=== PATIENT | female | born 1940 | race Caucasian/White ===

== ENCOUNTER 2016-06-29 13:19 | Outpatient (CLI) | payer OTHER ==
--- NOTE | 2016-06-29 14:32 | DIAGNOSTIC IMAGING REPORT ---
PROCEDURE: CT ABDOMEN/PELVIS W/O CONTRAST INDICATION: ABD PAIN X1 WEEK TECHNIQUE: Noncontrast axial images were obtained of the entire abdomen and pelvis with sagittal and coronal reformations. COMPARISON: CT abdomen/pelvis 01/15/2011. FINDINGS: ABDOMEN: Lung base are clear. Heart size is normal. Cholecystectomy. Liver, pancreas, spleen and adrenal glands are normal. Small right renal cyst. 3 mm left renal lower pole nonobstructing calculus. Mild atherosclerosis of the aorta. Nonspecific bowel gas pattern. PELVIS: Normal appendix. Occasional sigmoid diverticula. Mild perirectal fat stranding. Hysterectomy. Normal bladder. Moderate degenerative changes of the spine. IMPRESSION: 1. Mild perirectal fat stranding which may indicate proctitis or neoplastic changes. Correlate with physical exam. 2. Cholecystectomy and hysterectomy 3. 3 mm left renal lower pole nonobstructing calculus 4. Occasional sigmoid diverticula 5. Results discussed with ENMANUEL Fagan All CT scans at this facility use dose modulation, iterative reconstruction, and/or weight-based dosing when appropriate to reduce radiation dose to as low as reasonably achievable.
[2016-08-03] MEDS ORDERED: LASIX40 MG PO (17:45)
[2016-08-03] MEDS ORDERED: METOPROLOL SUCC25 MG PO (17:46)
[2016-08-03] MEDS ORDERED: OMEPRAZOLE20 M1 PO (17:47)
[2016-08-03] MEDS ORDERED: K-TABS10 MEQ PO (17:48)
[2016-08-03] MEDS ORDERED: LOVASTATIN40 MG PO (17:49)
[2016-08-03] MEDS ORDERED: CYCLOBENZAPRINE10 MG PO (17:49)
[2016-08-03] MEDS ORDERED: GABAPENTIN100 MG PO (17:49)
[2016-08-03] MEDS ORDERED: DESONIDE0.052 TOP (17:50)
[2016-08-03] MEDS ORDERED: FLUOXETINE HCL20 MG PO (17:52)
[2016-08-03] MEDS ORDERED: LOSARTAN POTASS50 MG PO (17:52)
[2016-08-03] MEDS ORDERED: TEMOVATE0.051 TOP (17:54)
[2016-08-03] MEDS ORDERED: ACYCLOVIR400 MG PO (17:55)
[2016-08-03] MEDS ORDERED: KRILL OIL PO (17:57)
[2016-08-03] MEDS ORDERED: MAGNESIUM500 M2 PO (17:57)
[2016-08-03] MEDS ORDERED: SUPER B-50 COMPLEX PO (17:58)
[2016-08-03] MEDS ORDERED: VITAMIN D-31000 UNIT PO (17:58)
[2016-08-03] MEDS ORDERED: COQ10150 MG PO (17:59)
[2016-08-03] MEDS ORDERED: MULTIPLE VITAMIN PO (17:59)
[2016-08-03] MEDS ORDERED: ASPIRIN ADULT L81 M1 PO (18:00)
[2016-08-03] MEDS ORDERED: PROBIOTI1 PO (18:00)
[2016-08-03] MEDS ORDERED: EQL IBUPROFEN200 MG PO (18:02)
== END 2016-06-29 23:00 ==
LOC: CT SRH 13:19
DX: R10.9 Unspecified abdominal pain (principal); Z90.49 Acquired absence of other specified parts of digestive tract; Z90.710 Acquired absence of both cervix and uterus; N20.0 Calculus of kidney

== ENCOUNTER 2016-07-28 09:40 | Outpatient (CLI) | payer OTHER ==
[2016-08-03] MEDS ORDERED: LASIX40 MG PO (17:45)
[2016-08-03] MEDS ORDERED: METOPROLOL SUCC25 MG PO (17:46)
[2016-08-03] MEDS ORDERED: OMEPRAZOLE20 M1 PO (17:47)
[2016-08-03] MEDS ORDERED: K-TABS10 MEQ PO (17:48)
[2016-08-03] MEDS ORDERED: LOVASTATIN40 MG PO (17:49)
[2016-08-03] MEDS ORDERED: CYCLOBENZAPRINE10 MG PO (17:49)
[2016-08-03] MEDS ORDERED: GABAPENTIN100 MG PO (17:49)
[2016-08-03] MEDS ORDERED: DESONIDE0.052 TOP (17:50)
[2016-08-03] MEDS ORDERED: FLUOXETINE HCL20 MG PO (17:52)
[2016-08-03] MEDS ORDERED: LOSARTAN POTASS50 MG PO (17:52)
[2016-08-03] MEDS ORDERED: TEMOVATE0.051 TOP (17:54)
[2016-08-03] MEDS ORDERED: ACYCLOVIR400 MG PO (17:55)
[2016-08-03] MEDS ORDERED: KRILL OIL PO (17:57)
[2016-08-03] MEDS ORDERED: MAGNESIUM500 M2 PO (17:57)
[2016-08-03] MEDS ORDERED: SUPER B-50 COMPLEX PO (17:58)
[2016-08-03] MEDS ORDERED: VITAMIN D-31000 UNIT PO (17:58)
[2016-08-03] MEDS ORDERED: COQ10150 MG PO (17:59)
[2016-08-03] MEDS ORDERED: MULTIPLE VITAMIN PO (17:59)
[2016-08-03] MEDS ORDERED: ASPIRIN ADULT L81 M1 PO (18:00)
[2016-08-03] MEDS ORDERED: PROBIOTI1 PO (18:00)
[2016-08-03] MEDS ORDERED: EQL IBUPROFEN200 MG PO (18:02)
== END 2016-07-28 23:00 ==
LOC: LAB SRH 09:40
DX: R19.7 Diarrhea, unspecified (principal)
CPT/HCPCS: 90112; 90124; 90455; 99784